=== PATIENT | female | born 1975 | race Caucasian/White ===

== ENCOUNTER 2020-09-20 13:57 | Inpatient (IN) | payer OTHER ==
[~2020-09-20] VITALS: Ht 170.1 cm; Wt 81.3 kg
[2020-09-20 14:05] VITALS: BP 1112/72; BP 112/72
[2020-09-20 15:01] LABS: BASO # 0.1 10*3/uL (0.0-0.1); BASO % 1.4 % (0.0-1.0); EOS # 0.1 10*3/uL (0.0-0.4); EOS % 1.3 % (1.0-4.0); HEMATOCRIT 48.2 % (37.0-47.0); LYMPH % 50.2 % (27.0-41.0); MEAN CELL VOLUME 91.8 fl (81.0-99.0); MEAN CORPUSCULAR HGB 31.6 pg (27.0-31.0); MEAN CORPUSCULAR HGB CONC 34.4 g/dl (33.0-37.0); MEAN PLATELET VOLUME 8.5 fl (9.6-12.3); MONO # 0.6 10*3/uL (0.1-1.0); MONO % 7.1 % (3.0-9.0); NEUT # 3.2 10*3/uL (2.3-7.9); NEUT % 39.7 % (47.0-73.0); PLATELET COUNT AUTOMATED 265 10*3/uL (130-400); RED BLOOD COUNT 5.25 10*6/uL (4.10-5.10); RED CELL DISTRI WIDTH 12.5 % (0-14.5); WHITE BLOOD COUNT 7.9 10*3/uL (4.8-10.8)
[2020-09-20 15:12] LABS: ACT PARTIAL THROMBO TIME 26.5 SECONDS (20.0-32.1)
[2020-09-20 15:20] LABS: ALBUMIN 3.9 gm/dl (3.1-4.5); ALKALINE PHOSPHATASE 98 U/L (45-117); BUN 13 mg/dl (7-24); CHLORIDE 115 mmol/L (98-107); CREATININE 0.74 mg/dL (0.55-1.02); POTASSIUM 3.9 mmol/L (3.5-5.1); SGOT/AST 25 IU/L (3-35); SGPT/ALT 28 U/L (12-78); SODIUM 140 mmol/L (136-145); TOTAL PROTEIN 7.5 gm/dL (6.4-8.2)
[2020-09-20 15:41] LABS: TROPONIN I < 0.015 ng/ml (<0.045)
[2020-09-20 16:36] VITALS: BP 115/75
[2020-09-20 17:10] VITALS: BP 101/60
[2020-09-20 18:14] VITALS: BP 105/76
[2020-09-20 18:47] LABS: BILIRUBIN Negative (Negative); BLOOD Negative (Negative); CLARITY Cloudy (Clear); COLOR Yellow (Yellow); GLUCOSE Negative (Negative); KETONE Negative (Negative); LEUKO ESTERASE Negative (Negative); NITRITE Negative (Negative); PH 5.5 (4.5-8.0)
[2020-09-20 18:55] LABS: BACTERIA 2+; EPITHELIAL CELLS TNTC; RBC 0-2 rbc/hpf (0-2)
[2020-09-20 22:06] VITALS: BP 124/70
[2020-09-20] MEDS ORDERED: SEROQUEL XR150 MG PO (22:42)
[2020-09-20] MEDS ORDERED: BUPROPION HYDR150 M3 PO (22:43)
[2020-09-20] MEDS ORDERED: NATURE'S BLEND F1 MG PO (22:44)
[2020-09-20 22:56] LABS: URINE AMPHETAMINES < 1000 (1000ng/ml); URINE BARBITURATES < 200 (200ng/ml); URINE BENZODIAZEPINES < 200 (200ng/ml); URINE CANNABINOIDS (THC) < 50 (50ng/ml); URINE COCAINE < 300 (300ng/ml); URINE METHADONE < 300 (300ng/ml); URINE OPIATES < 300 (300ng/ml)
[2020-09-20 23:03] LABS: URINE PHENCYCLIDINE < 25 (25ng/ml)
[2020-09-20 23:59] VITALS: BP 118/74
[2020-09-21 07:02] LABS: ALBUMIN 3.1 gm/dl (3.1-4.5); BUN 14 mg/dl (7-24); CHLORIDE 113 mmol/L (98-107); POTASSIUM 3.8 mmol/L (3.5-5.1); SODIUM 141 mmol/L (136-145)
[2020-09-21 07:04] LABS: BASO # 0.1 10*3/uL (0.0-0.1); BASO % 0.7 % (0.0-1.0); EOS # 0.1 10*3/uL (0.0-0.4); EOS % 1.3 % (1.0-4.0); LYMPH # 2.8 10*3/uL (1.3-4.4); LYMPH % 29.9 % (27.0-41.0); MEAN CELL VOLUME 93.8 fl (81.0-99.0); MEAN CORPUSCULAR HGB 31.6 pg (27.0-31.0); MEAN CORPUSCULAR HGB CONC 33.7 g/dl (33.0-37.0); MONO # 0.6 10*3/uL (0.1-1.0); MONO % 6.2 % (3.0-9.0); NEUT # 5.8 10*3/uL (2.3-7.9); NEUT % 61.6 % (47.0-73.0); PLATELET COUNT AUTOMATED 190 10*3/uL (130-400); RED BLOOD COUNT 4.37 10*6/uL (4.10-5.10); RED CELL DISTRI WIDTH 12.3 % (0-14.5); WHITE BLOOD COUNT 9.4 10*3/uL (4.8-10.8)
[2020-09-21 07:08] LABS: ALKALINE PHOSPHATASE 81 U/L (45-117); CHOLESTEROL 149 mg/dL (<200); CREATININE 0.76 mg/dL (0.55-1.02); LDL CHOLESTEROL 61 mg/dL (9-159); SGOT/AST 22 IU/L (3-35); SGPT/ALT 22 U/L (12-78); TRIGLYCERIDES 190 mg/dl (<150)
[2020-09-21 08:00] VITALS: BP 133/82
[2020-09-21 08:11] LABS: VITAMIN D, 25-HYDROXY 23.5 ng/mL (30-100)
[2020-09-21 12:00] VITALS: BP 135/73
== END 2020-09-21 14:49 | disposition left against medical advice (07) | DRG 206 ==
LOC: ED 13:57 → EDHOLD 17:27 → 4E 17:27
PROVIDERS: Emergency Medicine; Student in an Organized Health Care Education/Training Program; ADMIT Internal Medicine; ATTEND Internal Medicine
DX: M94.0 Chondrocostal junction syndrome [Tietze] (principal); K62.5 Hemorrhage of anus and rectum; K92.0 Hematemesis; F10.220 Alcohol dependence with intoxication, uncomplicated; R07.9 Chest pain, unspecified; R19.7 Diarrhea, unspecified; F41.9 Anxiety disorder, unspecified; E87.8 Other disorders of electrolyte and fluid balance, not elsewhere classified; F32.9 Major depressive disorder, single episode, unspecified; Z53.29 Procedure and treatment not carried out because of patient's decision for other reasons; J44.9 Chronic obstructive pulmonary disease, unspecified; F17.210 Nicotine dependence, cigarettes, uncomplicated; Z82.49 Family history of ischemic heart disease and other diseases of the circulatory system; Z82.5 Family history of asthma and other chronic lower respiratory diseases; Z98.51 Tubal ligation status